=== PATIENT | male | born 1965 | race African-American/Black ===

== ENCOUNTER 2024-05-23 18:32 | Emergency (ER) | payer OTHER ==
[~2024-05-23] VITALS: Ht 182.9 cm; Wt 111.0 kg
[2024-05-23] MEDS: IOHEXOL 350 MG/ML 100ML IJ ONE (19:09)
[2024-05-23 19:30] VITALS: PULSE 74; RESP 17; O2SAT 94
[2024-05-23 19:39] LABS: Basophils # (auto) 0.1 10 ^3/uL (0-0.2); Basophils % (auto) 0.7 % (0.0-2.0); Eosinophils # (auto) 0.2 10 ^3/uL (0-0.8); Hematocrit 42.9 % (41.0-53.0); Hemoglobin 14.1 g/dL (13.5-17.5); Lymphocytes % (auto) 17.6 % (10.0-50.0); Mean Corpuscular Hemoglobin 31.7 pg (28.0-32.0); Mean Corpuscular Hgb Conc. 32.9 g/dL (32.0-36.0); Mean Corpuscular Volume 96.3 fL (80.0-100.0); Monocytes # (auto) 0.8 10 ^3/uL (0-1.3); Monocytes % (auto) 6.7 % (0.0-12.0); Neutrophils # (auto) 8.3 10 ^3/uL (1.6-8.6); Nucleated Red Blood Cells % 0.1 %; Platelet Count (auto) 338 10^3/uL (140-450); Red Blood Cells 4.46 10^6/uL (4.5-5.90); Red Cell Distribution Width 15.4 % (11.8-14.3); White Blood Cell 11.3 10^3/uL (4.4-10.8)
[2024-05-23 19:56] LABS: INR 1.11 (0.9-1.15); Partial Thromboplastin Time 29.9 SEC (24.5-34.5); Prothrombin Time 11.7 sec (9.3-11.8)
[2024-05-23 19:58] LABS: Alanine Aminotransferase 33 U/L (7-40); Alkaline Phosphatase 77 U/L (46-116); Anion Gap 7 (5-15); BUN/Creatinine Ratio 8.6 (10.0-20.0); Blood Urea Nitrogen 13 mg/dL (9-23); Calcium 9.9 mg/dL (8.7-10.4); Carbon Dioxide 24 mmol/L (20-30); Chloride 106 mmol/L (98-107); Glucose 112 mg/dL (74-106); Potassium 3.8 mmol/L (3.5-5.1); Sodium 137 mmol/L (136-145)
[2024-05-23 19:59] LABS: Albumin 4.4 g/dL (3.2-4.8); Aspartate Aminotransferase 28 U/L (13-40); Bilirubin, Total 0.3 mg/dL (0.2-1.0); Total Protein 7.5 g/dL (5.7-8.2)
[2024-05-23 20:11] LABS: Urine Bacteria None Seen /hpf (None Seen)
[2024-05-23 20:24] LABS: Urine Blood Negative /uL (Negative); Urine Clarity Clear (Clear); Urine Color Yellow (Yellow); Urine Protein, UAD Negative (Negative); Urine Specific Gravity 1.023 (1.001-1.035); Urine Urobilinogen Normal (Negative); Urine WBC <1 /hpf (0 - 3); Urine pH 5.5 (5.0-9.0)
[2024-05-23] MEDS: ASPirin 81 mg TAB PO ONE (20:31)
[2024-05-23] MEDS ORDERED: LORazepam 2MG/ML-1ML VIAL IV PRN (20:45)
[2024-05-23 21:20] LABS: Triglycerides 147 mg/dL (< 150)
[2024-05-23 21:21] LABS: LDL Cholesterol 85 mg/dL (< 100)
[2024-05-23 21:22] LABS: Cholesterol 158 mg/dL (< 200); HDL Cholesterol 34 mg/dL (40-59)
[2024-05-23 21:25] LABS: Amphetamine Screen, Urine Neg (NEGATIVE)
[2024-05-23 21:26] LABS: Barbiturate Scree,Urine Neg (NEGATIVE); Benzodiazephine Screen, Urine Neg (NEGATIVE); Cannabinoid Screen, Urine Neg (NEGATIVE); Cocaine Screen, Urine Neg (NEGATIVE); Opiate Scree,Urine Neg (NEGATIVE); Phencyclidine Screen, Urine Neg (NEGATIVE)
[2024-05-23 21:40] LABS: COVID19 ANTIGEN SOFIA FIA NEGATIVE (NEGATIVE)
[2024-05-23] MEDS ORDERED: cloNIDine HCL 0.1 MG TAB PO ONE (21:45)
[2024-05-23] MEDS: cloNIDine HCL 0.1 MG TAB PO ONE (22:10)
[2024-05-23] MEDS: CLOPIDOGREL BISULFATE 75 MG TAB PO SCH (22:10)
[2024-05-23 23:47] VITALS: BP 156/105; PULSE 68; RESP 16; TEMP 98.1; O2SAT 93
[2024-05-24] MEDS ORDERED: ASPirin 81 mg TAB PO SCH (10:00)
[2024-05-24] MEDS ORDERED: ATORVASTATIN 20 MG TAB PO SCH (22:00)
== END 2024-05-23 23:57 | disposition short-term general hospital (02) ==
LOC: ER 18:32
DX: I63.9 Cerebral infarction, unspecified (principal); R47.01 Aphasia; E11.9 Type 2 diabetes mellitus without complications; E78.5 Hyperlipidemia, unspecified; I10 Essential (primary) hypertension; Z98.890 Other specified postprocedural states; Z20.822 Contact with and (suspected) exposure to COVID-19
CPT/HCPCS: 36415; 70450; 70496; 71045; 80053; 80061; 80307; 81001; 82962; 83735; 83880; 84484; 85025; 85610; 85730; 87426; 93005; 99291; Q9967